=== PATIENT | male | born 1955 | race Caucasian/White ===

== ENCOUNTER 2021-05-17 13:05 | Emergency (ER) | payer OTHER ==
[~2021-05-17] VITALS: Ht 182.9 cm; Wt 102.1 kg
[2021-05-17] MEDS ORDERED: BAMLANIVIMAB / ETESEVIMAB 2,100 MG in SODIUM CHLORIDE 0.9% 250ML 250 ML IV ONE (14:00)
[2021-05-17 16:58] VITALS: BP 128/73
== END 2021-05-17 16:59 | disposition home or self-care (01) ==
LOC: ER 14:04
DX: U07.1 COVID-19 (principal)
CPT/HCPCS: 99283; J7050